=== PATIENT | female | born 2000 | race Hispanic/Latino ===

== ENCOUNTER 2022-02-20 19:41 | Emergency (ER) | payer MEDICAID ==
[~2022-02-20] VITALS: Ht 154.9 cm; Wt 58.5 kg
[2022-02-20 19:42] VITALS: BP 100/62
[2022-02-20 20:33] LABS: BASOPHILS % (AUTO) 0.6 % (0.0-5.0); EOSINOPHILS % (AUTO) 2.4 % (0.0-8.0); HEMATOCRIT 33.5 % (36-48); LYMPHOCYTES % (AUTO) 41.6 % (21.0-51.0); MEAN CORPUSCULAR HGB CONC 30.7 g/dL (32.0-36.0); MEAN CORPUSCULAR VOLUME 81.3 fL (79-99); MONOCYTES % (AUTO) 7.3 % (3.0-13.0); PLATELET COUNT (AUTO) 310 K/uL (130-400); RED BLOOD CELL COUNT(AUTO) 4.12 MIL/uL (4.00-5.50); RED CELL DISTRIBUTION WIDTH 14.7 % (11.0-15.5); WHITE BLOOD COUNT (AUTO) 6.8 K/uL (4.8-10.8)
[2022-02-20 20:42] LABS: CREATININE 0.5 mg/dL (0.5-1.5); POTASSIUM 3.4 mmol/L (3.5-5.1)
[2022-02-20 20:46] LABS: APPEARANCE,URINE CLOUDY (CLEAR); BILIRUBIN,URINE NEGATIVE (NEGATIVE); COLOR,URINE LIGHT-YELLOW (YELLOW); GLUCOSE, URINE (UA) NEGATIVE (NEGATIVE); KETONES,URINE NEGATIVE (NEGATIVE); LEUKOCYTE ESTERASE ,URINE 25 Leu/uL (NEGATIVE); NITRATE,URINE NEGATIVE (NEGATIVE); OCCULT BLOOD,URINE LARGE (NEGATIVE); PH,URINE 5.5 (5.0-8.0); PROTEIN,URINE NEGATIVE (NEGATIVE); UROBILINOGEN,URINE 0.2 mg/dL (0.2-1.0)
[2022-02-20 20:54] LABS: ALBUMIN 3.7 g/dL (3.5-5.0); TOTAL PROTEIN, SERUM 7.7 g/dL (6.0-8.3)
[2022-02-20 21:00] LABS: BACTERIA,URINE FEW /HPF (None Seen); MUCUS,URINE FEW LPF (None Seen); RBC,URINE TNTC /HPF (0-1); SQUAMOUS EPITHELIAL CELL,UR RARE /HPF (0-2); WBC,URINE 26-50 /HPF (0-1)
[2022-02-20] MEDS ORDERED: CEFTRIAXONE 1G VIAL IM ONE (21:30)
[2022-02-20] MEDS ORDERED: CEPH500B PO (21:30)
[2022-02-20] MEDS ORDERED: PNV-5 PO (21:30)
[2022-02-20] MEDS ORDERED: PHENAZOPYRIDINE HCL 200 MG TABLET PO ONE (21:30)
== END 2022-02-20 22:02 | disposition home or self-care (01) ==
LOC: EDH 19:41
DX: O20.0 Threatened abortion (principal); N39.0 Urinary tract infection, site not specified; Z3A.00 Weeks of gestation of pregnancy not specified
CPT/HCPCS: 36415; 76801; 80053; 81001; 84702; 85025; 86900; 86901; 87088; J0696

== ENCOUNTER 2024-03-07 10:45 | Emergency (ER) | payer SELFPAY ==
[~2024-03-07] VITALS: Ht 154.9 cm; Wt 53.1 kg
[~2024-03-07 10:45] MED LIST: CEPH500B PO; PNV-5 PO
--- NOTE | 2024-03-07 11:48 | HMCIMG ---
FOOT COMP 3+VWS LT CLINICAL HISTORY: Pain, injury COMPARISON: None TECHNIQUE: AP lateral and oblique images were obtained. FINDINGS: No obvious fracture or dislocation. No joint effusion. The soft tissues appear unremarkable. No radiopaque foreign bodies. IMPRESSION: No acute findings.
--- NOTE | 2024-03-07 12:14 | HMCIMG ---
HUMERUS 2+VWS LT CLINICAL HISTORY: Pain, injury COMPARISON: None TECHNIQUE: 2 images were obtained. FINDINGS: No obvious fracture or dislocation. No joint effusion. The soft tissues appear unremarkable. No radiopaque foreign bodies. IMPRESSION: No acute findings.
[2024-03-07] MEDS: acetaMINOPHEN 500 MG TABLET PO ONE (12:28)
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
--- NOTE | 2024-03-07 12:39 | HMCIMG ---
FOREARM 2VWS LT CLINICAL HISTORY: Pain, injury COMPARISON: None TECHNIQUE: AP and lateral images were obtained. FINDINGS: No obvious fracture or dislocation. No joint effusion. The soft tissues appear unremarkable. No radiopaque foreign bodies. IMPRESSION: No acute findings.
--- NOTE | 2024-03-07 12:41 | HMCIMG ---
SHOULDER COMP 2+VWS LT CLINICAL HISTORY: Pain, injury COMPARISON: None TECHNIQUE: 2 images were obtained. FINDINGS: No obvious fracture or dislocation. No joint effusion. The soft tissues appear unremarkable. No radiopaque foreign bodies. IMPRESSION: No acute findings.
[2024-03-07 13:04] VITALS: BP 110/76; PULSE 85; RESP 18; TEMP 98.1; O2SAT 100
== END 2024-03-07 13:13 | disposition home or self-care (01) ==
LOC: EDH 10:45
DX: S53.402A Unspecified sprain of left elbow, initial encounter (principal); S93.502A Unspecified sprain of left great toe, initial encounter; S43.402A Unspecified sprain of left shoulder joint, initial encounter; V89.9XXA Person injured in unspecified vehicle accident, initial encounter; Y93.89 Activity, other specified; Y92.89 Other specified places as the place of occurrence of the external cause; Y99.8 Other external cause status
CPT/HCPCS: 29105; 73030; 73060; 73090; 73630; 99284